=== PATIENT | male | born 1960 | race Caucasian/White ===

== ENCOUNTER 2018-05-12 13:58 | Outpatient (CLI) | payer OTHER ==
[~2018-05-12] VITALS: Ht 182.9 cm; Wt 65.3 kg
[2018-05-12] MEDS ORDERED: TAMSULOSIN HCL0.4 MG ORAL (15:03)
--- NOTE | 2018-05-12 15:06 | GI Initial Consult Note ---
History of Present Illness General Date patient seen: May 12, 2018 Time patient seen: 15:01 Referring physician: HMO Reason for Consultation: WEIGHT LOSS Present Illness HPI 57 year old male patient presents today with c/o of abdominal pain and bloating/ fullness. In addition, has c/o of constipation vs diarrhea with increased urgency in which he describes as liquid. The patient had recently changed to a Vegan Diet in december of 2017. States he has lost over 20-30 lbs in the past 4-5 months. No signs of abuse or neglect. Patient is not fall risk. Home Meds Reported Medications Tamsulosin Hcl (TAMSULOSIN HCL*) 0.4 Mg Cap.er.24h, 0.4 MG ORAL BEDTIME, CAP 05/12/18 Patient History History Provided By: Patient, Medical Record [facility] Narrative BPH Hemorrhoids Past Surgical History: Left hernia Surgical Repair 1970. Pertinent Family History: none Social History Narrative Social ETOH user Social Tobacco user Social Marijuana user drinks coffee and soda often Review of Systems All Other Systems: negative except mentioned in HPI Physical Exam T 98.2 BP 104/67 P 80 100 RA HT 6'0 WT 144 lbs Sp02 EP Interpretation: reviewed, normal General Appearance: well appearing, no apparent distress, alert Head: normocephalic EENT: PERRL/EOMI, normal ENT inspection Neck: supple Respiratory: normal breath sounds, no respiratory distress Cardiovascular: normal rate Gastrointestinal: normal inspection, non tender, soft, normal bowel sounds, non -distended Rectal: deferred Genitourinary: deferred Musculoskeletal: normal inspection, back normal Neurologic: normal inspection, alert, oriented x3, responsive Psychiatric: normal inspection, judgement/insight normal, memory normal Skin: normal inspection, normal color, no rash, warm/dry, palpation normal, well hydrated Lymphatic: normal inspection, no adenopathy GI: Plan Problems: (1) Weight loss (2) Constipation (3) Diarrhea (4) Abdominal bloating (5) Pain, abdominal Plan EGD/colonoscopy to be scheduled pending PA, will contact patient. - CLD & (Nulytely/Suprep/Movi-Prep) prep instructions given and acknowledged by patient. - NPO @ ME day prior procedure explained. Seen with Dr. Ash. Thank you for this patient referral. The patient was seen and examined at bedside and all new and available data was reviewed in the patients chart. I agree with the above findings, impression and plan. (Patient seen earlier today. Signature stamp does not reflect patient encounter time.). - MD Traci MooreValleywise Health Medical CenterFrantz MORRISON May 12, 2018 15:06
[2018-05-12 15:37] VITALS: BP 104/67
== END 2018-05-12 14:28 | disposition home or self-care (01) ==
LOC: PAN 13:58
DX: R10.9 Unspecified abdominal pain (principal); R14.0 Abdominal distension (gaseous); N40.0 Benign prostatic hyperplasia without lower urinary tract symptoms; R63.4 Abnormal weight loss; K59.00 Constipation, unspecified; R19.7 Diarrhea, unspecified
CPT/HCPCS: 99202